=== PATIENT | male | born 1965 | race Caucasian/White ===

== ENCOUNTER 2018-11-10 21:22 | Observation (INO) ==
[2018-11-10] MEDS ORDERED: 0.9 % Sodium Chloride 1,000 ML IVC ONE (21:32)
[2018-11-10] MEDS ORDERED: Azithromycin 500 MG in 0.9 % Sodium Chloride 250 ML IVPB ONE (21:32)
[2018-11-10] MEDS ORDERED: cefTRIAXone 1,000 MG in Water for inj. (sterile) 10 ML IVP ONE (21:32)
--- NOTE | 2018-11-10 21:34 | Emergency Department Note ---
Disposition Clinical Impression: Pneumonia, Sepsis Disposition: Admitted As Inpatient Condition: Good Referrals: NONE,PCP [Primary Care Provider] - Forms: ED Satisfaction Letter, Work/School Release Time of Disposition: 23:13 SOB HPI - General Chief Complaint: ED General Medical Stated Complaint: "not feeling well" Time Seen by Provider: 11/10/18 21:34 Source: patient Mode of arrival: ambulatory Limitations: no limitations Nursing Notes Reviewed: Yes Vital Signs Reviewed: Yes - History of Present Illness 53-year-old male who presents today with shortness of breath. He states he has had a fever cough shortness breath for couple days gotten worse today. He has a history of COPD. Tried rhhl-scu-[id number] medications is not helping. He states he does have a productive yellow cough. He denies any chest pain but he states that his abscess her from coughing so much. He has a history of [place]'s chorea. He is a smoker Pt Subjective Complaint: shortness of breath - Related Data Home Medications Medication Instructions Recorded Confirmed Dicyclomine [Bentyl] 10 mg PO QID 10/21/16 10/21/16 Divalproex (24 HR) [Depakote ER 1,500 mg PO DAILY 10/21/16 10/21/16 (24 HR)] Meloxicam [Mobic] 7.5 mg PO DAILY 10/21/16 10/21/16 Venlafaxine HCl [Venlafaxine HCl 150 mg PO DAILY 10/21/16 10/21/16 ER] Previous Rx's Medication Instructions Recorded Tramadol HCl [Ultram] 50 mg PO QID PRN #14 tab 10/21/16 predniSONE [PredniSONE] 40 mg PO DAILY #10 tablet 10/21/16 Albuterol Sulfate [Albuterol 2 puff IH Q6HR PRN #1 hfa.aer.ad 01/11/17 Inhaler] Azithromycin [Azithromycin 6-Tab 250 mg PO PER PKG DI #6 tab 01/11/17 Pack] Benzonatate [Tessalon] 100 - 200 mg PO TID PRN #30 capsule 01/11/17 predniSONE [PredniSONE] 20 mg PO DAILY #18 tablet 01/11/17 Allergies Allergy/AdvReac Type Severity Reaction Status Date / Time morphine Allergy Anaphylaxis Verified 10/21/16 14:55 Review of Systems: All other systems are negative except as noted/marked Chart generated with voice recognition software Nursing notes reviewed Old records reviewed Past Medical History - Past Medical History Attestation: Yes The following information was validated with the patient. Source: patient, old records reviewed, nursing notes reviewed Medical history: Reports: arthritis, COPD, other Surgical history: Reports: cholecystectomy, knee replacement (Bilateral), orthopedic, other (Right shoulder, right carpal tunnel, right trigger finger) Psychiatric history: Reports: anxiety, depression - Social History Smoking Status: Current every day smoker Smokeless Tobacco Status: No Alcohol use: Reports: occasionally Drug use: Reports: none Physical Exam General: NAD Head: normocephalic, atraumatic Eyes: EOMI, PERRLA mouth: Dry mucous membranes Neck: NO CLA, Supple Chest wall: normal rise, no crepitus, no deformity noted Lungs: Diminished lung sounds on the right with coarse exhalation Heart: Tachycardic and regular Abd: soft, nontender, BS normal : deferred MSK: strength equal in all four extremities Ext: moves all four extremities, no obvious deformities Skin: cap refill normal, warm, dry neuro : CN2-12 grossly intact, A&Ox3 Psych: normal affect, not anxious - General Limitations: no limitations General appearance: alert Course Vital Signs Temperature 99.5 F 11/10/18 21:22 Pulse Rate 142 11/10/18 21:22 Respiratory Rate 22 11/10/18 21:22 Blood Pressure 115/74 11/10/18 21:22 O2 Sat by Pulse Oximetry 92 11/10/18 21:22 Temperature 101.0 F H 11/10/18 23:10 Pulse Rate 122 11/10/18 23:10 Respiratory Rate 17 11/10/18 23:10 Blood Pressure 114/70 11/10/18 23:10 O2 Sat by Pulse Oximetry 97 11/10/18 23:10 Oxygen Delivery Oxygen Delivery Nasal Cannula Shortness of Breath/Dyspnea - [facility] Narrative Medical decision making narrative: 53-year-old male who presents today with shortness of breath cough and not feeling well and fever the last couple days. His fever increased while he was here. We gave him some Tylenol given 30/kg bolus we gave him antibiotics. He does have pneumonia. Patient initially wondered try to get better and go home however agreed to admission after his heart rate remained elevated after a liter of fluid. Pleurisy the rest of his bolus and be admitted to the floor for observation and further evaluation and treatment of his pneumonia and sepsis. He is agreeable to this plan. - Medical Records Medical records reviewed: Yes I reviewed the patient's medical records. - Lab Data Lab results reviewed: Yes I reviewed the patient's lab results. Result diagrams: 11/10/18 21:41 11/10/18 21:41 Lab Results 11/10/18 11/10/18 11/10/18 Range/Units 21:41 21:41 21:41 WBC 17.3 H (4.3-11.1) K/mcL RBC 4.43 (4.19-5.50) M/mcL Hgb 14.8 (12.9-16.9) g/dL Hct 41.9 (37.5-50.1) % MCV 94.6 (83.0-100.0) fL MCH 33.4 H (28.0-33.3) pg MCHC 35.3 (31.6-35.5) g/dL RDW 12.9 (11.5-14.5) % Plt Count 170 (140-400) K/mcL MPV 9.8 (9.4-12.4) fL Immature Gran % 0.5 (0-4) % Seg Neutrophils % 75.6 % Lymphocytes % 11.0 % Monocytes % 12.5 % Eosinophils % 0.2 % Basophils % 0.2 % Neutrophils # 13.1 H (1.6-8.9) K/mcL Lymphocytes # 1.9 (0.6-4.6) K/mcL Monocytes # 2.2 H (0.0-1.3) K/mcL Eosinophils # 0.0 (0.0-0.6) K/mcL Basophils # 0.0 (0.0-0.2) K/mcL PT 11.8 (9.4-12.1) Seconds INR 1.0 APTT 30.4 (26.0-36.0) Seconds Sample Site ABG pH (7.32-7.45) pH Units ABG pCO2 (35-45) mmHg ABG pO2 (85-104) mmHg ABG HCO3 (21-27) mEq/L ABG Total CO2 (20-26) mEq/L ABG O2 Saturation (95-98) % ABG Base Excess (-2 to 3) mEq/L Jorge Test O2 Delivery Device Inspired O2 (1-15=lpm [id number]=%) Sodium 135 L (136-145) mEq/L Potassium 3.9 (3.5-5.1) mEq/L Chloride 101 (98-107) mEq/L Carbon Dioxide 25 (23-29) mEq/L BUN 6 (6-20) mg/dL Creatinine 0.82 (0.70-1.30) mg/dL Est GFR ( Amer) > 60 (> 60) Est GFR (Non-Af Amer) > 60 (> 60) BUN/Creatinine Ratio 7 (6-26) Glucose 153 H (70-105) mg/dL Calculated Osmolality 281 (280-300) Lactic Acid (0.5-2.2) mmol/L Calcium 9.6 (8.6-10.3) mg/dL Phosphorus 1.9 L (2.7-4.5) mg/dL Magnesium 1.8 (1.6-2.6) mg/dL Total Bilirubin 0.7 (0.3-1.0) mg/dL Direct Bilirubin 0.1 (0.0-0.2) mg/dL Indirect Bilirubin 0.6 (0.0-1.2) mg/dL AST 12 L (13-39) Units/L ALT 10 (7-52) Units/L Alkaline Phosphatase 73 (34-104) Units/L Troponin I < 0.03 (< 0.04) ng/mL Serum Total Protein 7.6 (6.4-8.9) g/dL Albumin 4.4 (3.5-5.7) g/dL Globulin 3.2 (2.4-3.5) g/dL Albumin/Globulin Ratio 1.4 (1.1-2.2) Urine Color (Yellow) Urine Clarity (Clear) Urine pH (5.0-8.0) pH Units Ur Specific [place] (1.010-1.025) Urine Protein (Neg-Trace) mg/dL Urine Glucose (UA) (Normal) mg/dL Urine Ketones (Negative) mg/dL Urine Blood (Negative) Urine Nitrite (Negative) Urine Bilirubin (Negative) Urine Urobilinogen (Normal) mg/dL Ur Leukocyte Esterase (Negative) Urine Microscopic RBC (0-3) per hpf Ur Squamous Epith Cells (None-Few) per lpf Ur Culture Indicated? (NO) 11/10/18 11/10/18 11/10/18 Range/Units 21:41 21:45 21:58 WBC (4.3-11.1) K/mcL RBC (4.19-5.50) M/mcL Hgb (12.9-16.9) g/dL Hct (37.5-50.1) % MCV (83.0-100.0) fL MCH (28.0-33.3) pg MCHC (31.6-35.5) g/dL RDW (11.5-14.5) % Plt Count (140-400) K/mcL MPV (9.4-12.4) fL Immature Gran % (0-4) % Seg Neutrophils % % Lymphocytes % % Monocytes % % Eosinophils % % Basophils % % Neutrophils # (1.6-8.9) K/mcL Lymphocytes # (0.6-4.6) K/mcL Monocytes # (0.0-1.3) K/mcL Eosinophils # (0.0-0.6) K/mcL Basophils # (0.0-0.2) K/mcL PT (9.4-12.1) Seconds INR APTT (26.0-36.0) Seconds Sample Site R Radial ABG pH 7.50 H (7.32-7.45) pH Units ABG pCO2 27 L (35-45) mmHg ABG pO2 70 L (85-104) mmHg ABG HCO3 21 (21-27) mEq/L ABG Total CO2 22 (20-26) mEq/L ABG O2 Saturation 96 (95-98) % ABG Base Excess -1 (-2 to 3) mEq/L Jorge Test Positive O2 Delivery Device Cannula Inspired O2 2.0 (1-15=lpm [id number]=%) Sodium (136-145) mEq/L Potassium (3.5-5.1) mEq/L Chloride (98-107) mEq/L Carbon Dioxide (23-29) mEq/L BUN (6-20) mg/dL Creatinine (0.70-1.30) mg/dL Est GFR ( Amer) (> 60) Est GFR (Non-Af Amer) (> 60) BUN/Creatinine Ratio (6-26) Glucose (70-105) mg/dL Calculated Osmolality (280-300) Lactic Acid 1.7 (0.5-2.2) mmol/L Calcium (8.6-10.3) mg/dL Phosphorus (2.7-4.5) mg/dL Magnesium (1.6-2.6) mg/dL Total Bilirubin (0.3-1.0) mg/dL Direct Bilirubin (0.0-0.2) mg/dL Indirect Bilirubin (0.0-1.2) mg/dL AST (13-39) Units/L ALT (7-52) Units/L Alkaline Phosphatase (34-104) Units/L Troponin I (< 0.04) ng/mL Serum Total Protein (6.4-8.9) g/dL Albumin (3.5-5.7) g/dL Globulin (2.4-3.5) g/dL Albumin/Globulin Ratio (1.1-2.2) Urine Color Yellow (Yellow) Urine Clarity Clear (Clear) Urine pH 8.0 (5.0-8.0) pH Units Ur Specific [place] 1.015 (1.010-1.025) Urine Protein Trace (Neg-Trace) mg/dL Urine Glucose (UA) Normal (Normal) mg/dL Urine Ketones 15 H (Negative) mg/dL Urine Blood Trace-intact H (Negative) Urine Nitrite Negative (Negative) Urine Bilirubin Small H (Negative) Urine Urobilinogen 2.0 H (Normal) mg/dL Ur Leukocyte Esterase Negative (Negative) Urine Microscopic RBC 0-3 (0-3) per hpf Ur Squamous Epith Cells Few (None-Few) per lpf Ur Culture Indicated? NO (NO) - Radiology Data Radiology results reviewed: Yes I reviewed the patient's radiology results. EXAMINATION: ONE XRAY VIEW OF THE CHEST 11/10/2018 9:51 pm COMPARISON: 01/10/2007 CT HISTORY: ORDERING SYSTEM PROVIDED HISTORY: sob sepsis Shortness of breath and cough for days. Initial study. FINDINGS: No acute bony abnormality. The heart size is normal, stable. The right lung is clear. Mild left basilar airspace disease is suspected. No large effusion. XR/XR chest 1V portable IMPRESSION: Mild left basilar airspace disease, atelectasis or pneumonia. Follow-up is recommended, preferably with a PA and lateral study. D/ / Leigha Barbosa Cha, MD / Leigha Barbosa Cha, MD Interpreting Provider: Leigha Barbosa Cha, MD - EKG Data EKG attestation: Yes I reviewed and interpreted this EKG. EKG results narrative: EKG interpreted by myself as sinus tachycardia rate of 132 QTc of [address] elevation
[2018-11-10] MEDS ORDERED: Ipratropium/Albuterol Neb 3 ML IH ONE ×2 (21:41→22:10)
[2018-11-10 21:50] LABS: Basophils % 0.2 %; Eosinophils % 0.2 %; Hematocrit 41.9 % (37.5-50.1); Hemoglobin 14.8 g/dL (12.9-16.9); Immature Granulocytes % 0.5 % (0-4); Lymphocytes # 1.9 K/mcL (0.6-4.6); Mean Corpuscular HGB Conc 35.3 g/dL (31.6-35.5); Mean Corpuscular Hemoglobin 33.4 pg (28.0-33.3); Mean Corpuscular Volume 94.6 fL (83.0-100.0); Mean Platelet Volume 9.8 fL (9.4-12.4); Monocytes # 2.2 K/mcL (0.0-1.3); Monocytes % 12.5 %; Neutrophils # 13.1 K/mcL (1.6-8.9); Platelet Count 170 K/mcL (140-400); Red Blood Count 4.43 M/mcL (4.19-5.50); Red Cell Distribution Width 12.9 % (11.5-14.5); Segmented Neutrophils % 75.6 %; White Blood Count 17.3 K/mcL (4.3-11.1)
[2018-11-10 21:55] LABS: Prothrombin Time 11.8 Seconds (9.4-12.1)
[2018-11-10 21:58] LABS: Activated Partial Thrombo Time 30.4 Seconds (26.0-36.0)
[2018-11-10 22:02] LABS: ABG Base Excess -1 mEq/L (-2 to 3); ABG HCO3 21 mEq/L (21-27); ABG Oxygen Saturation 96 % (95-98); ABG PCO2 27 mmHg (35-45); ABG PO2 70 mmHg (85-104); ABG TCO2 22 mEq/L (20-26)
[2018-11-10 22:06] LABS: Bilirubin,Urine Small (Negative); Blood,Urine Trace-intact (Negative); Clarity,Urine Clear (Clear); Color,Urine Yellow (Yellow); Glucose,Urine (UA) Normal (Normal); Ketones,Urine 15 mg/dL (Negative); Leukocyte Esterase,Urine Negative (Negative); Nitrite,Urine Negative (Negative); Protein,Urine Trace mg/dL (Neg-Trace); Specific Gravity,Urine 1.015 (1.010-1.025)
[2018-11-10 22:07] LABS: Alanine Aminotransferase 10 Units/L (7-52); Albumin 4.4 g/dL (3.5-5.7); Albumin/Globulin Ratio 1.4 (1.1-2.2); Alkaline Phosphatase 73 Units/L (34-104); Aspartate Amino Transferase 12 Units/L (13-39); BUN/Creatinine Ratio 7 (6-26); Bilirubin,Direct 0.1 mg/dL (0.0-0.2); Bilirubin,Indirect 0.6 mg/dL (0.0-1.2); Bilirubin,Total 0.7 mg/dL (0.3-1.0); Blood Urea Nitrogen 6 mg/dL (6-20); Calcium 9.6 mg/dL (8.6-10.3); Carbon Dioxide 25 mEq/L (23-29); Chloride 101 mEq/L (98-107); Globulin 3.2 g/dL (2.4-3.5); Glucose 153 mg/dL (70-105); Magnesium 1.8 mg/dL (1.6-2.6); Osmolality,Calculated 281 (280-300); Phosphorous 1.9 mg/dL (2.7-4.5); Potassium 3.9 mEq/L (3.5-5.1); Sodium 135 mEq/L (136-145); Total Protein 7.6 g/dL (6.4-8.9); Troponin I < 0.03 ng/mL (< 0.04); eGFR For African Americans > 60 (> 60); eGFR For Non-African Americans > 60 (> 60)
[2018-11-10 22:12] LABS: RBC,Urine 0-3 per hpf (0-3); Squamous Epithelial Cell,Urine Few per lpf (None-Few)
[2018-11-10] MEDS: 0.9 % Sodium Chloride 1,000 ML IVC SCH (22:56)
[2018-11-11] MEDS ORDERED: 0.9 % Sodium Chloride 1,000 ML IVC SCH (00:05)
[2018-11-11] MEDS ORDERED: Mag Hydrox/Al Hydrox/Simeth 30 ML UDC PO PRN (00:05)
[2018-11-11] MEDS ORDERED: Acetaminophen 325 MG TABLET PO PRN (00:05)
[2018-11-11] MEDS ORDERED: MOM Conc 10 ML UD.LIQ PO PRN (00:05)
[2018-11-11] MEDS ORDERED: Naloxone 0.4 MG/ML INJ IVP PRN (00:05)
[2018-11-11] MEDS ORDERED: Ondansetron 4 MG/2 ML VIAL IVP PRN (00:05)
[2018-11-11] MEDS: 0.9 % Sodium Chloride 1,000 ML IVC SCH ×4 (00:32→10:01)
[2018-11-11] MEDS: *HR* HYDROcodone/Acet 5/325 mg TABLET PO PRN ×4 (00:38→21:59)
[2018-11-11 07:05] LABS: Basophils % 0.3 %; Eosinophils # 0.1 K/mcL (0.0-0.6); Eosinophils % 0.6 %; Hematocrit 36.9 % (37.5-50.1); Hemoglobin 12.5 g/dL (12.9-16.9); Immature Granulocytes % 0.4 % (0-4); Lymphocytes # 3.3 K/mcL (0.6-4.6); Lymphocytes % 24.6 %; Mean Corpuscular HGB Conc 33.9 g/dL (31.6-35.5); Mean Corpuscular Hemoglobin 33.4 pg (28.0-33.3); Mean Corpuscular Volume 98.7 fL (83.0-100.0); Mean Platelet Volume 10.1 fL (9.4-12.4); Monocytes # 1.7 K/mcL (0.0-1.3); Neutrophils # 8.2 K/mcL (1.6-8.9); Platelet Count 139 K/mcL (140-400); Red Blood Count 3.74 M/mcL (4.19-5.50); Segmented Neutrophils % 61.1 %; White Blood Count 13.4 K/mcL (4.3-11.1)
[2018-11-11] MEDS: Divalproex (24 HR) 500 MG TABLET PO SCH (07:55)
[2018-11-11] MEDS: Venlafaxine XR (24 HR) 150 MG CAP.ER.24H PO SCH (07:55)
[2018-11-11 08:15] LABS: BUN/Creatinine Ratio 9 (6-26); Blood Urea Nitrogen 6 mg/dL (6-20); Calcium 8.3 mg/dL (8.6-10.3); Carbon Dioxide 26 mEq/L (23-29); Chloride 112 mEq/L (98-107); Glucose 96 mg/dL (70-105); Osmolality,Calculated 293 (280-300); Potassium 4.1 mEq/L (3.5-5.1); Sodium 143 mEq/L (136-145); eGFR For African Americans > 60 (> 60); eGFR For Non-African Americans > 60 (> 60)
[2018-11-11] MEDS ORDERED: REVATIO PO SCH (09:30)
[2018-11-11] MEDS: Budesonide/Formoterol 160/4.5 1 PUFF INH IH SCH ×2 (09:56→23:21)
[2018-11-11] MEDS: Nicotine 21 MG PATCH.TD24 TD SCH (10:00)
[2018-11-11] MEDS: risperiDONE 1 MG TABLET PO SCH (10:00)
[2018-11-11] MEDS ORDERED: Tiotropium 18 MCG inhalation IH SCH (10:00)
[2018-11-11] MEDS: Tiotropium 18 MCG inhalation IH SCH (10:05)
[2018-11-11] MEDS: Sucralfate 1 GM TABLET PO SCH ×3 (12:09→21:59)
--- NOTE | 2018-11-11 15:20 | Electrocardiograph Report ---
[place] [id number] Test Date: 2018-11-10 Pat Name: Andrez Gamble Department: EDP-14 Room: [facility] Gender: M Dietitian Consultant: : 1965 Requested By: Tori Maldonado Order Number: [id number] Reading MD: Solange Perkins Measurements Intervals [place] Rate: 132 P: 64 MA: 154 QRS: 52 QRSD: 85 T: 70 QT: 289 QTc: 429 Interpretive Statements Sinus tachycardia Low voltage, precordial leads Electronically Signed On 11-11-2018 15:18:16 EDT by Solange Perkins
--- NOTE | 2018-11-11 15:42 | Internal Med History&Physical ---
Date of Encounter: 11/11/18 Time of Encounter: 15:00 Assessment and Plan (1) Pneumonia Current visit: Yes Status: Acute He was started on Rocephin and Zithromax in emergency room. These will be continued with lactobacillus. Pro-calcitonin level will be ordered. Qualifiers: Pneumonia type: due to unspecified organism Laterality: left Lung location: lower lobe of lung Qualified Code(s): J18.1 - Lobar pneumonia, unspecified organism (2) Anemia Current visit: Yes Status: Acute Hemoglobin has decreased to 12.5 on labs today. Anemia testing will be ordered. Qualifiers: Anemia type: unspecified type Qualified Code(s): D64.9 - Anemia, unspecified (3) Hypophosphatemia Current visit: Yes Status: Acute Phosphorus level returned low at 1.9. He will be given Neutra-Phos (4) [place]'s disease Current visit: Yes Status: Acute Continue Rx as per [facility] neurologist. Internal Medicine - H&P: HPI Chief complaint: Cough and dyspnea Admitted From: Emergency Dept Plans for Post Hospital Care: Home History of present illness: Mr. Gamble is a 53 year old male who came to emergency room stating he had 2 day history of cough productive of occasional green/yellow sputum and fevers/chills. He denies vomiting or diarrhea. On the evening of admission he experienced increased dyspnea so came to emergency room. He was evaluated and found to have left lung pneumonia. He was admitted to [facility] floor for ongoing care needs. Respiratory history is significant for having smoked since age 16 up to 1-1/2 packs per day. He reports PFTs done approximately 2014 showed COPD/emphysema. He does not use home oxygen. RONNY workup was negative. He feels slightly im proved at the present time but not back to his baseline. Past Med Surg Social Fam HX - Past Medical History Medical history: arthritis, COPD, other Additional medical history: diverticulitis. [place] Psychiatric history: anxiety, depression - Past Surgical History Surgical History: cholecystectomy, knee replacement (Bilateral), orthopedic, other (Right shoulder, right carpal tunnel, right trigger finger) Additional surgical history: Bilateral knee replacements. right shoulder. Right carpel tunnel and trigger finger. - Social History Smoking Status: Current every day smoker Packs per day: 1 Smokeless Tobacco Status: No Alcohol use: occasionally Drug use: none Internal Medicine - H&P: Meds Divalproex (24 HR) [Depakote ER (24 HR)] 1,500 mg PO DAILY 10/21/16 [History] Meloxicam [Mobic] 15 mg PO DAILY 10/21/16 [History] Albuterol Sulfate [Albuterol Inhaler] 2 puff IH Q6HR PRN #1 hfa.aer.ad 01/11/17 [Rx] Allergy/AdvReac Type Severity Reaction Status Date / Time morphine Allergy Anaphylaxis Verified 10/21/16 14:55 All Systems PM: A 10-system review of systems was performed and is negative for pertinent findings except as documented above in the HPI. Review of systems: Gen.: He states his weight has been stable for several months. Cardiovascular: He denies hypertension NH heart failure angina DVT or pulmonary embolus Respiratory: As per history of present illness GI: He has had cholecystectomy. He has diverticulosis. He denies disorders of his liver or exocrine pancreas. : He is on Flomax for presumed BPH. He denies other kidney bladder prostate disorders. Neurologic: He has [place]'s chorea diagnosed 2005 and follows with a [place] neurologist. He denies large distribution strokes or seizures. Endocrine: He denies diabetes thyroid disease or hyperlipidemia Hematology/oncology: He has had skin cancers. He denies blood disorders, anemia, or internal malignancies. Psychiatric: He has anxiety and depression but denies other mental health issues. [place] skeletal: He has had bilateral total knee replacements, right shoulder surgery, right carpal tunnel surgery, right fourth trigger finger release, and D CHUCHO. He denies gout. - Constitutional Vitals: Temp Pulse Resp BP Pulse Ox 96.6 F L 76 16 125/84 99 11/11/18 10:00 11/11/18 10:00 11/11/18 10:05 11/11/18 10:00 11/11/18 10:05 Exam: Gen.: He is a well-developed well-nourished male lying in bed who appears in no acute distress HEENT: Head is atraumatic and normocephalic. Eyes: EOMI. There is no scleral icterus. Mouth: Mucosa is moist. Neck: Supple and nontender. There is no thyromegaly or adenopathy noted. Heart: Regular without murmurs gallops or ectopics Lungs: No wheezes or crackles are heard. Abdomen: Soft and nontender. No masses or guarding are noted. Extremities: There is no cyanosis edema or clubbing noted. Dorsalis pedis and posterior tibial pulses are 1-2 over 2 bilaterally. Neurologic: Mental status: He is talkative and a good historian. Cranial nerves: Smile is symmetric. Forehead wrinkles bilaterally. Tongue protrudes midline. EOMI. Motor: There is no pronator drift. Cerebellar: Finger to nose is intact bilaterally. Skin: Warm and dry Internal Med - H&P Results - Labs CBC & Chem 7: 11/11/18 06:45 11/11/18 06:45 Labs: Short CBC 11/10/18 11/11/18 Range/Units 21:41 06:45 WBC 17.3 H 13.4 H (4.3-11.1) K/mcL Hgb 14.8 12.5 L D (12.9-16.9) g/dL Hct 41.9 36.9 L (37.5-50.1) % Plt Count 170 139 L (140-400) K/mcL Neutrophils # 13.1 H 8.2 (1.6-8.9) K/mcL BMP 11/10/18 11/11/18 21:41 06:45 Sodium 135 L 143 Potassium 3.9 4.1 Chloride 101 112 H Carbon Dioxide 25 26 BUN 6 6 Creatinine 0.82 0.68 L Glucose 153 H 96 Calcium 9.6 8.3 L Cardiac Enzymes 11/10/18 Range/Units 21:41 Troponin I < 0.03 (< 0.04) ng/mL Liver Function 11/10/18 Range/Units 21:41 Total Bilirubin 0.7 (0.3-1.0) mg/dL Direct Bilirubin 0.1 (0.0-0.2) mg/dL AST 12 L (13-39) Units/L ALT 10 (7-52) Units/L Alkaline Phosphatase 73 (34-104) Units/L Albumin 4.4 (3.5-5.7) g/dL Urine 11/10/18 Range/Units 21:45 Urine Color Yellow (Yellow) Urine Clarity Clear (Clear) Urine pH 8.0 (5.0-8.0) pH Units Ur Specific [place] 1.015 (1.010-1.025) Urine Protein Trace (Neg-Trace) mg/dL Urine Glucose (UA) Normal (Normal) mg/dL - ABG Interpretation ABG results: 11/10/18 21:58 ABG pH 7.50 H ABG pCO2 27 L ABG pO2 70 L ABG HCO3 21 ABG Total CO2 22 ABG O2 Saturation 96 ABG Base Excess -1 - Impressions ITS Impressions Chest X-Ray 11/10/18 22:00 IMPRESSION: Mild left basilar airspace disease, atelectasis or pneumonia. Follow-up is recommended, preferably with a PA and lateral study. D/ / Leigha Barbosa Cha, MD / Leigha Barbosa Cha, MD Interpreting Provider: Leigha Barbosa Cha, MD
[2018-11-11] MEDS: 0.45 % Sodium Chloride w/KCl 20 MEQ/1,000 ML MLS IVC SCH (16:15)
[2018-11-11] MEDS ORDERED: Azithromycin 500 MG in 0.9 % Sodium Chloride 250 ML IVPB SCH (21:00)
[2018-11-11] MEDS ORDERED: cefTRIAXone 1,000 MG in Water for inj. (sterile) 10 ML IVP SCH (21:00)
[2018-11-11] MEDS: Lactobacillus 1 EACH CAP.SPRINK PO SCH (21:59)
[2018-11-12 05:06] LABS: Basophils % 0.3 %; Eosinophils # 0.2 K/mcL (0.0-0.6); Eosinophils % 1.9 %; Hematocrit 36.4 % (37.5-50.1); Hemoglobin 12.4 g/dL (12.9-16.9); Immature Granulocytes % 0.5 % (0-4); Lymphocytes # 3.9 K/mcL (0.6-4.6); Lymphocytes % 32.8 %; Mean Corpuscular HGB Conc 34.1 g/dL (31.6-35.5); Mean Corpuscular Hemoglobin 33.7 pg (28.0-33.3); Mean Corpuscular Volume 98.9 fL (83.0-100.0); Mean Platelet Volume 10.4 fL (9.4-12.4); Monocytes # 1.3 K/mcL (0.0-1.3); Monocytes % 10.6 %; Neutrophils # 6.4 K/mcL (1.6-8.9); Platelet Count 150 K/mcL (140-400); Red Blood Count 3.68 M/mcL (4.19-5.50); Red Cell Distribution Width 12.8 % (11.5-14.5); Segmented Neutrophils % 53.9 %; White Blood Count 11.9 K/mcL (4.3-11.1)
[2018-11-12] MEDS: *HR* HYDROcodone/Acet 5/325 mg TABLET PO PRN (05:20)
[2018-11-12] MEDS: 0.45 % Sodium Chloride w/KCl 20 MEQ/1,000 ML MLS IVC SCH (05:20)
[2018-11-12 05:25] LABS: Alanine Aminotransferase 8 Units/L (7-52); Albumin 3.5 g/dL (3.5-5.7); Albumin/Globulin Ratio 1.3 (1.1-2.2); Alkaline Phosphatase 62 Units/L (34-104); Aspartate Amino Transferase 10 Units/L (13-39); BUN/Creatinine Ratio 7 (6-26); Bilirubin,Total 0.3 mg/dL (0.3-1.0); Blood Urea Nitrogen 4 mg/dL (6-20); Calcium 8.9 mg/dL (8.6-10.3); Carbon Dioxide 29 mEq/L (23-29); Chloride 105 mEq/L (98-107); Globulin 2.7 g/dL (2.4-3.5); Glucose 89 mg/dL (70-105); Osmolality,Calculated 286 (280-300); Phosphorous 3.8 mg/dL (2.7-4.5); Potassium 4.1 mEq/L (3.5-5.1); Sodium 140 mEq/L (136-145); Total Protein 6.2 g/dL (6.4-8.9); eGFR For African Americans > 60 (> 60); eGFR For Non-African Americans > 60 (> 60)
[2018-11-12] MEDS: Divalproex (24 HR) 500 MG TABLET PO SCH (09:00)
[2018-11-12] MEDS: Nicotine 21 MG PATCH.TD24 TD SCH (09:00)
[2018-11-12] MEDS: Lactobacillus 1 EACH CAP.SPRINK PO SCH (09:01)
[2018-11-12] MEDS: Sucralfate 1 GM TABLET PO SCH (09:01)
[2018-11-12] MEDS: risperiDONE 1 MG TABLET PO SCH (09:01)
[2018-11-12] MEDS: Venlafaxine XR (24 HR) 150 MG CAP.ER.24H PO SCH (09:01)
[2018-11-12 09:27] LABS: % Iron Saturation 15 % (20-55); Iron 36 mcg/dL (65-175); Transferrin 169 mg/dL (203-362)
[2018-11-12] MEDS: Budesonide/Formoterol 160/4.5 1 PUFF INH IH SCH (09:44)
[2018-11-12] MEDS: Tiotropium 18 MCG inhalation IH SCH (09:44)
[2018-11-12 09:45] LABS: Ferritin 315 ng/mL (20-250)
[2018-11-12 09:51] LABS: Folate 15.5 ng/mL (3.0-16.0)
--- NOTE | 2018-11-12 10:17 | Discharge Summary ---
Orders not resulted at time of discharge: Pending orders 11/10/18 21:54 Culture,Blood [BC] Stat Date of Encounter: 11/12/18 Time of Encounter: 10:08 - Discharge Diagnosis (1) Pneumonia Priority: Primary Status: Acute Qualifiers: Pneumonia type: due to unspecified organism Laterality: left Lung location: lower lobe of lung Qualified Code(s): J18.1 - Lobar pneumonia, unspecified organism (2) Anemia Priority: Secondary Status: Acute Qualifiers: Anemia type: unspecified type Qualified Code(s): D64.9 - Anemia, unspecified (3) Hypophosphatemia Priority: Secondary Status: Acute (4) [place]'s disease Priority: Secondary Status: Acute Hospital course: Mr. Gamble is a 53 year old male who came to emergency room stating he had 2 day history of cough productive of occasional green/yellow sputum and fevers/chills. He denies vomiting or diarrhea. On the evening of admission he experienced increased dyspnea so came to emergency room. He was evaluated and found to have left lung pneumonia. He was admitted to [facility] for ongoing care needs. Initial orders were written by the emergency room physician. I saw him on November 11 and performed the history and physical. He was started on IV Rocephin and Zithromax in emergency room. Fever ada to 101.0 the evening of admission but decreased and remained 99.5 or lower through the remainder of his stay. When I saw him on November 12 he felt improved and stable for discharge home. He will continue with antibiotic and probiotic for 3 additional days at discharge. Room air oximetry will be checked on 6 minute walk prior to discharge. Anemia testing showed iron 36, transferrin saturation 15%, transferrin 169, ferritin 315, B12 706, and folate 15.5. Meloxicam will be discontinued. His PCP can monitor anemia. He was given Neutra-Phos and hypophosphatemia resolved by day of discharge. His PCP can monitor labs. He will follow with his PCP Dr. Torres within 1 week. - Time Spent with Patient Total time spent providing and/or coordinating discharge services: - Discharge Medications Prescriptions: New Cefuroxime PO [Ceftin] 500 mg PO Q12HR #6 tablet Lactobacillus [Culturelle] 1 each PO BID #6 cap.sprink Azithromycin [Zithromax] 250 mg PO DAILY #3 tablet Continued Divalproex (24 HR) [Depakote ER (24 HR)] 1,500 mg PO DAILY Albuterol Sulfate [Proventil Inhaler] 2 puff IH Q6HR PRN #1 hfa.aer.ad PRN Reason: Wheezing Discontinued Meloxicam [Mobic] 15 mg PO DAILY Home Medications: Divalproex (24 HR) [Depakote ER (24 HR)] 1,500 mg PO DAILY 10/21/16 [History] Albuterol Sulfate [Proventil Inhaler] 2 puff IH Q6HR PRN #1 hfa.aer.ad 01/11/17 [Rx] Azithromycin [Zithromax] 250 mg PO DAILY #3 tablet 11/12/18 [Rx] Cefuroxime PO [Ceftin] 500 mg PO Q12HR #6 tablet 11/12/18 [Rx] Lactobacillus [Culturelle] 1 each PO BID #6 cap.sprink 11/12/18 [Rx] Allergies/Adverse Reactions: Allergy/AdvReac Type Severity Reaction Status Date / Time morphine Allergy Anaphylaxis Verified 10/21/16 14:55 Date of admission: 11/10/18 23:29 Primary care physician: Chetna Torres M.D. - Constitutional Vitals: Temp Pulse Resp BP Pulse Ox 99.1 F 81 16 134/90 95 11/11/18 23:17 11/11/18 23:17 11/12/18 09:45 11/11/18 23:17 11/12/18 09:45 - Patient Status Disposition: Home, Self-Care Condition: Good - Discharge Instructions Follow Up With: NONE,PCP [Primary Care Provider] - 1 week - Diet and Activity Activity: resume usual activities as tolerated Diet: advance to your usual diet
[2018-11-12 10:44] VITALS: BP 136/83
== END 2018-11-12 12:17 | disposition home or self-care (01) ==
LOC: EMEROOPIK 21:22 → INPPIK 21:22
PROVIDERS: ADMIT Internal Medicine; ATTEND Internal Medicine